=== PATIENT | female | born 1985 | race Caucasian/White ===

== ENCOUNTER 2017-11-15 15:39 | Emergency (ER) | payer BC, OTHER ==
[~2017-11-15] VITALS: Ht 170.2 cm; Wt 75.4 kg
[~2017-11-15 15:39] MED LIST: ACET-1256 PO; PRENTAB26 PO
[2017-11-15 15:54] VITALS: TEMP 36.6; Ht 170.2 cm; Wt 75.4 kg
--- NOTE | 2017-11-15 16:35 | EMERGENCY ROOM VISIT NOTE ---
ED Visit Note First contact with patient: 16:09 CHIEF COMPLAINT: Left calf pain HISTORY OF PRESENT ILLNESS: This 32-year-old female patient presents to the emergency department, ambulatory, with her , complaining of left calf pain times approximately 2 weeks. The patient states she is a history of very sensitive calves, and frequently gets pain. She states 2 weeks ago, she was doing yard work, noticed the pain beginning at that time. She states today, the pain got significantly worse, and has been progressively getting worse over the past 2 weeks. She describes the pain today as tingling and sharp stabbing pains in the left leg radiating upwards. She did start using the NuvaRing in September, and was on this for 2 months. She does have a family history of DVT in her mother due to control, and her grandfather at a young age due to an MD. The patient is very concerned due to this family history. She is no longer taking control, does not use any other hormonal supplements. She is not a smoker, denies any recent travel. The patient does have a history of anxiety, and states her anxiety has been flaring up more than normal. She denies any dyspnea or chest pain. She describes the pain in the mid calf, and states increases with palpation. She rates at 6/10. She denies any numbness, known injury, color changes. The patient is able to bear weight. REVIEW OF SYSTEMS: A 10 system review of systems was performed with positives and pertinent negatives listed in the history of present illness. All other systems were reviewed and are negative. ALLERGIES: Banana, minocycline MEDICATIONS: Vitamin D PMH: Anxiety, miscarriage SOCIAL HISTORY: Patient lives locally with family. She denies drug, tobacco use. She admits to very occasional alcohol use. PHYSICAL EXAM: VITALS: Vitals are noted on the nurse's note and reviewed by myself. Vital signs stable. The patient is not tachycardic or hypoxic. GENERAL: This is a 32-year-old white female, in no acute distress, nondiaphoretic, well-developed well-nourished. SKIN: The skin was without rashes, erythema, edema, or bruising. There is no tenting of the skin. Capillary reflex less than 2 seconds. HEAD: Normocephalic atraumatic. EARS: External auditory canals clear, tympanic membranes pearly diallo without erythema or effusion bilaterally. EYES: Pupils equal round and reactive to light and accommodation. Conjunctivae without injection, sclerae without icterus. Extraocular movements intact. NOSE: Patent, turbinates without inflammation or discharge. No sinus tenderness. MOUTH: Mucous membranes moist. Tonsils are not enlarged. Pharynx without erythema or exudate. Uvula midline. Airway patent. Tongue does not deviate. NECK: Supple without nuchal rigidity. No lymphadenopathy. No thyromegaly. Cervical spine is nontender. No JVD. HEART: Regular rate and rhythm without murmurs gallops or rubs. LUNGS: Clear to auscultation bilaterally without wheezes, rales or rhonchi. No dullness to percussion. No retractions or accessory muscle use. ABDOMEN: Positive bowel sounds x 4. Normal tympanic percussion. Soft, nontender, without masses or organomegaly. Mills sign negative. No guarding or rebound tenderness. MUSCULOSKELETAL: No muscle atrophy, erythema, or edema noted. Full range of motion without joint tenderness in all extremities. Tenderness of the anterior left tibia at approximately midline on palpation. There is tenderness of the calf. There is no palpable cord. There is no discoloration or significant swelling. The patient does have tenderness of the right calf on palpation as well. Normal gait. Strength 5/5 throughout. NEURO: Patient was alert and oriented to person place and time. Normal sensation to light and sharp touch. Deep tendon reflexes 2+ throughout. No focal neurological deficits. RADIOLOGY: L TIBIA/FIBULA 2 VIEWS ROUTINE HISTORY: 32 years-old Female left fish pain acute left leg pain COMPARISON: None available TECHNIQUE: 2 views of the left tibia and fibula FINDINGS: Subcentimeter bone island of the lateral proximal tibia. No acute fracture, subluxation or significant degenerative changes. Bone mineralization is within normal limits. Soft tissues are unremarkable without opaque foreign body. IMPRESSION: No acute bony abnormality. The above report was generated using voice recognition software. It may contain grammatical, syntax or spelling errors. Electronically signed by: Giacomo Cordero M.D. 11/15/2017 5:10 PM Dictated Date/Time: 11/15/2017 5:09 PM ULTRASOUND LEFT LOWER EXTREMITY VENOUS CLINICAL HISTORY: Left calf pain. COMPARISON STUDY: No priors. TECHNIQUE: Real-time, grayscale, and color Doppler sonography of the deep veins of the left lower extremity was performed from the inguinal crease to the calf. Compression and augmentation were utilized. FINDINGS: There is no sonographic evidence of deep venous thrombosis identified in the left lower extremity. The common femoral, superficial femoral, and popliteal veins are patent and normally compressible. The greater saphenous vein and the profunda femoris vein at the junction with the common femoral vein are clear. The visualized calf veins are patent. IMPRESSION: There is no sonographic evidence of deep venous thrombosis identified in the left lower extremity. Electronically signed by: Yony Hawthorne M.D. 11/15/2017 5:22 PM Dictated Date/Time: 11/15/2017 5:21 PM EMERGENCY DEPARTMENT COURSE: Patient was seen and evaluated as above. The primary concern was DVT, however the patient does suspect possible injury several weeks ago. X-ray and ultrasound were performed and reviewed by myself and radiologist as above. These were negative for acute injury or DVT. The patient was offered pain medication and declined. I discussed the findings of imaging with the patient at bedside. With negative tests, I suspect a possible contusion versus muscle strain or sprain. The patient was encouraged to treat the symptoms conservatively with OTC anti-inflammatories and analgesics. She was encouraged to use heat or ice, whichever helps with the discomfort. The patient was agreeable to the plan of care. She was encouraged to follow-up outpatient with her primary care provider. Discharge instructions reviewed, the patient was discharged home in good condition. I attest that I have personally reviewed the patient's current medication list. Blood Pressure Screening: Patient was found to have a slightly elevated blood pressure due to circumstances. I do not believe that the patient requires hypertension monitoring. Etiologies such as DVT, joint effusion, infection, trauma, muscular, lymphedema , idiopathic, CHF, as well as others were entertained. DIAGNOSIS: left calf pain The chart was completed utilizing [employer] Speech voice recognition software. Grammatical errors, random word insertions, pronoun errors, and incomplete sentences are an occasional consequence of this system due to software limitations, ambient noise, and hardware issues. Any formal questions or concerns about the content, text, or information contained within the body of this dictation should be directly addressed to the provider for clarification. Current/Historical Medications Scheduled Cholecalciferol (D-5000), 5,000 UNITS PO Q2D Allergies Coded Allergies: Minocycline (Verified Allergy, Intermediate, "hives on my neck", 11/15/17) Banana (Verified Allergy, Unknown, hives, gi upset, 11/15/17) Vital Signs Date Time Temp Pulse Resp B/P (MAP) Pulse Ox O2 Delivery O2 Flow Rate FiO2 11/15/17 17:48 76 123/86 100 11/15/17 15:54 36.6 97 16 157/98 96 Room Air Departure Information Impression Primary Impression: Pain of left calf Dispostion Home / Self-Care Condition GOOD Referrals No Doctor, Assigned (PCP) Patient Instructions ED Contusion Lower Ext, My [facility] Additional Instructions He was seen in the emergency department today for left calf pain. X-ray and ultrasound were negative for acute abnormalities. Ibuprofen(Motrin, Advil) may be used for fever or pain. Use 600mg every six hours as needed. Take with food. Avoid using more than 2400mg in a 24 hour period. Do not use 2400mg per day for more than three consecutive days without physician direction. Prolonged inappropriate use can lead to stomach upset or ulcers. (AND/OR) Acetaminophen(Tylenol) may be used for fever or pain. Use 1000mg every six hours as needed. Avoid using more than 3000mg in a 24 hour period. Use ice or heat to help with the discomfort. You may consider massage to help with discomfort. Please continue to follow-up with her primary care provider regarding possible causes for your pain. Return to the emergency department for any significantly worsening pain, discoloration, weakness, numbness, or other concerning symptoms.
[2017-11-15] MEDS ORDERED: CHOLTAB11 PO (16:39)
--- NOTE | 2017-11-15 17:11 | DIAGNOSTIC IMAGING REPORT ---
L TIBIA/FIBULA 2 VIEWS ROUTINE HISTORY: 32 years-old Female left fish pain acute left leg pain COMPARISON: None available TECHNIQUE: 2 views of the left tibia and fibula FINDINGS: Subcentimeter bone island of the lateral proximal tibia. No acute fracture, subluxation or significant degenerative changes. Bone mineralization is within normal limits. Soft tissues are unremarkable without opaque foreign body. IMPRESSION: No acute bony abnormality. The above report was generated using voice recognition software. It may contain grammatical, syntax or spelling errors. Electronically signed by: Giacomo Cordero M.D. 11/15/2017 5:10 PM Dictated Date/Time: 11/15/2017 5:09 PM
--- NOTE | 2017-11-15 17:23 | DIAGNOSTIC IMAGING REPORT ---
ULTRASOUND LEFT LOWER EXTREMITY VENOUS CLINICAL HISTORY: Left calf pain. COMPARISON STUDY: No priors. TECHNIQUE: Real-time, grayscale, and color Doppler sonography of the deep veins of the left lower extremity was performed from the inguinal crease to the calf. Compression and augmentation were utilized. FINDINGS: There is no sonographic evidence of deep venous thrombosis identified in the left lower extremity. The common femoral, superficial femoral, and popliteal veins are patent and normally compressible. The greater saphenous vein and the profunda femoris vein at the junction with the common femoral vein are clear. The visualized calf veins are patent. IMPRESSION: There is no sonographic evidence of deep venous thrombosis identified in the left lower extremity. Electronically signed by: Yony Hawthorne M.D. 11/15/2017 5:22 PM Dictated Date/Time: 11/15/2017 5:21 PM
[2017-11-15 17:48] VITALS: BP 123/86; PULSE 76; O2SAT 100
== END 2017-11-15 17:50 | disposition home or self-care (01) ==
LOC: C.EDB 15:40 → C.EDD 17:50
DX: M79.662 Pain in left lower leg (principal); F41.9 Anxiety disorder, unspecified; Z88.1 Allergy status to other antibiotic agents; Z91.018 Allergy to other foods; Z82.49 Family history of ischemic heart disease and other diseases of the circulatory system

== ENCOUNTER 2020-02-14 06:10 | Inpatient (IN) ==
[2020-02-14] MEDS ORDERED: OXYTOCIN 30 UNITS/500 ML BAG IV PRN ×2 (06:35→18:43)
--- NOTE | 2020-02-14 06:44 | History & Physical Report ---
Date of Service February 14, 2020 Assessment & Plan (1) Prolonged , antepartum: IUP at 40+ weeks in labor would like to ambulate for now epidural when patient requests it anticipate vaginal History of Present Illness Primary Care Provider: NO PCP Patient is a 34 yo white female EDC 02/11/20 who presents at 40+ weeks with regular contractions. no bloodys show or SPROM. uncomplicated except for post term . GBS -negative. Blood type A-negative. Allergies Allergy/AdvReac Type Severity Reaction Status Date / Time minocycline Allergy Intermediate "hives on Verified 02/13/20 15:35 my neck" banana Allergy Unknown hives, gi Verified 02/13/20 15:35 upset latex Allergy rash Verified 02/13/20 15:35 Home Medications Home Medications Medication Instructions Recorded Confirmed Type vit-iron fum-folic ac 1 tab PO DAILY 02/14/20 02/14/20 History [ Vitamin] Patient History Medical History (Updated 02/13/20 @ 15:37 by José Luis Washington Jr, MD, FACOG) Anxiety Encounter for anatomic survey H/O miscarriage, currently H/O: 1 miscarriage Hx of abnormal cells from cervix 2008 Hx of varicella Shingles Spontaneous (Inactive) Surgical History (Updated 07/23/19 @ 15:14 by Geraldine Shah) H/O dilation and curettage History of colposcopy History of tonsillectomy Family History (Updated 07/23/19 @ 15:15 by Geraldine Shah) Mother Depression Grandfather (Maternal) Myocardial infarction Social History (Updated 07/23/19 @ 15:17 by Geraldine Shah) Preferred Language: Khmer Communication Ability: Effective Latin Dance Instructor Required: No Beliefs That Will Affect Care: None marital status: marital status details: Evans Raygoza (34) [phone] Current Living Situation: Spouse Current Living Situation Comment: lives with spouse, 3 cats, 1 dog, changing litter current occupational status: employed current occupation: [employer] Other Information That Helps Us Care for You: No Feels Safe at Home: Yes Safety Concerns: Feels Safe At This Time Smoking Status: Never smoker Second Hand Exposure: No ; Hx Alcohol Use: No Hx Substance Use: No Review of Systems All systems reviewed & are unremarkable except as noted in HPI & below Physical Exam Constitutional: WD/WN, vitals as above Respiratory: normal respiratory effort, lungs clear to auscultation Cardiovascular: RRR, no murmur, no edema Gastrointestinal (Abdomen): normal bowel sounds, soft, nontender, no hepatosplenomegaly Psychiatric: A+Ox3, euthymic affect Genitourinary: OB Exam Abdomen: + vertex and + estimated weight (8-9 pounds) Manual OB Exam: + cervical dilation 5 cm, + cervical effacement 90% and + station -1 OB Exam Monitor Tracing: + external FHT monitor used, + external uterine monitor used, + category I and + normal FHT variability Results & Data Vital Signs (Past 12 Hours) Vital Signs Pulse BP 02/14/20 06:25 103 H 135/82 Coding Level of Care Code None Diagnoses Prolonged , antepartum O48.1
[2020-02-14] MEDS: LACTATED RINGER'S 1,000 ML IV PRN ×2 (07:00→12:21)
[2020-02-14 07:24] LABS: Hematocrit (blood only) 35.6 % (37-47); Hemoglobin 11.5 g/dL (12.0-16.0); Mean Corpuscular Volume 89.7 fL (80-100); Mean Platelet Volume 10.1 fL (7.4-10.4); Platelet Count 257 K/uL (130-400); RDW Coefficient of Variation 14.2 % (11.5-14.5); RDW Standard Deviation 46.5 fL (36.4-46.3); Red Blood Count 3.97 M/uL (4.2-5.4); White Blood Count 17.59 K/uL (4.8-10.8)
--- NOTE | 2020-02-14 07:33 | Anesthesiology Consultation ---
Date of Service February 14, 2020 Assessment & Plan Chart Review Chart Review: Acceptable Risk for Surgery, Patient NOT seen in Pre Admission Testing and Acceptable Risk for Labor Epidural Consults Requested none ASA ASA2 Proposed Anesthesia Anesthesia Type: Labor Epidural and CSE History Height/Weight Height: 5 ft 7 in Weight: 87.997 kg Allergies Allergy/AdvReac Type Severity Reaction Status Date / Time minocycline Allergy Intermediate "hives on Verified 02/13/20 15:35 my neck" banana Allergy Unknown hives, gi Verified 02/13/20 15:35 upset latex Allergy rash Verified 02/13/20 15:35 Medications Home Medications Medication Instructions Recorded Confirmed Last Taken vit-iron fum-folic ac 1 tab PO DAILY 02/14/20 02/14/20 02/12/20 [ Vitamin] Active Medications Generic Name Dose Route Start Last Admin Trade Name Freq PRN Reason Stop Dose Admin Lactated Ringer's 1,000 mls @ 125 mls/hr 02/14/20 06:35 02/14/20 07:31 Lr IV 02/16/20 06:34 125 mls/hr .Q8H PRN Infusion L&D Protocol Protocol Past Medical History Medical History Anxiety Encounter for anatomic survey H/O miscarriage, currently H/O: 1 miscarriage Hx of abnormal cells from cervix 2008 Hx of varicella Shingles Spontaneous (Inactive) Exercise / Class Metabolic Activity II 4-5 Yardwork/Stairs/Walk up hill Past Family History Family History Mother Depression Grandfather (Maternal) Myocardial infarction Past Surgical History Surgical History H/O dilation and curettage History of colposcopy History of tonsillectomy Past Anesthesia History No Hx of Anesthesia Complications and No Family Hx of Anesthesia Complications History of PONV No Hx of PONV and No Hx of Motion Sickness Social History Smoking Status: Never smoker Hx Alcohol Use: No Hx Substance Use: No Physical Exam Vital Signs Last Vital Signs Temp 36.5 C 02/14/20 06:27 Pulse 93 H 02/14/20 07:04 Resp 20 02/14/20 07:04 BP 130/96 02/14/20 07:04 Testing Laboratory Results 02/14/20 06:55
[2020-02-14 07:39] LABS: Mean Corpuscular Hgb Conc 32.3 g/dL (32-36)
[2020-02-14] MEDS ORDERED: BUPIVACAINE 0.25% 30 ML VIAL ONE (11:47)
[2020-02-14] MEDS ORDERED: fentaNYL citrate 100 MCG/2 ML VIAL ONE (11:47)
[2020-02-14] MEDS ORDERED: ePHEDrine sulfate 50 MG/ML AMP ONE (11:47)
[2020-02-14] MEDS ORDERED: fentaNYL 2MCG/ML ROPIV 1.25MG/ML 100 ML BAG EPI ONE (11:48)
[2020-02-14] MEDS ORDERED: NALOXONE HCL 0.4 MG/1 ML VIAL/CARP IV PRN (12:36)
[2020-02-14] MEDS ORDERED: ePHEDrine sulfate 50 MG/ML AMP IV PRN (12:36)
[2020-02-14] MEDS ORDERED: NALOXONE HCL 1 MG in SODIUM CHLORIDE 0.9% 1000ML 1,000 ML IV PRN (12:36)
[2020-02-14] MEDS ORDERED: ONDANSETRON INJ 2 MG/ML 2 ML VIAL IV PRN (12:36)
[2020-02-14] MEDS ORDERED: NALBUPHINE HCL INJ 10 MG/ML AMP IV PRN (12:36)
[2020-02-14] MEDS ORDERED: DiphenhydrAMINE HCL 50 MG/ML VIAL IV PRN (12:36)
[2020-02-14] MEDS ORDERED: PROMETHAZINE HCL 25 MG in SODIUM CHLORIDE 0.9% 50 ML IV PRN (12:36)
[2020-02-14] MEDS ORDERED: fentaNYL 2MCG/ML ROPIV 1.25MG/ML 100 ML BAG EPI PRN (12:36)
--- NOTE | 2020-02-14 17:10 | Labor Progress Brief Note ---
Date of Service February 14, 2020 Pushing for 100 minutes. Good descent of the head. Cat 2 Results & Data Vital Signs (Past 12 Hours) Vital Signs Temp Pulse Resp BP Pulse Ox 02/14/20 17:07 104 H 97 02/14/20 17:02 105 H 133/69 97 02/14/20 16:57 118 H 97 02/14/20 16:52 109 H 97 02/14/20 16:47 118 H 98 02/14/20 16:46 108 H 131/67 02/14/20 16:42 110 H 98 02/14/20 16:37 110 H 98 02/14/20 16:33 110 H 137/72 02/14/20 16:32 112 H 98 02/14/20 16:27 119 H 98 02/14/20 16:22 105 H 97 02/14/20 16:20 110 H 92 02/14/20 16:17 115 H 148/75 H 97 02/14/20 16:12 103 H 97 02/14/20 16:07 114 H 99 02/14/20 16:05 114 H 91 02/14/20 16:02 121 H 96 02/14/20 16:01 99 H 140/73 02/14/20 15:58 107 H 92 02/14/20 15:57 106 H 98 02/14/20 15:52 105 H 98 02/14/20 15:48 107 H 84 L 02/14/20 15:47 102 H 137/73 96 02/14/20 15:42 100 H 100 02/14/20 15:41 98.2 F 20 02/14/20 15:37 90 99 02/14/20 15:32 84 99 02/14/20 15:31 88 130/70 02/14/20 15:27 85 98 02/14/20 15:22 82 98 02/14/20 15:17 94 H 99 02/14/20 15:13 83 132/79 02/14/20 15:12 86 98 02/14/20 15:08 83 134/78 02/14/20 15:07 84 97 02/14/20 15:02 84 122/73 97 02/14/20 14:58 85 122/73 02/14/20 14:57 87 97 02/14/20 14:53 82 127/74 02/14/20 14:52 80 97 02/14/20 14:48 85 122/73 02/14/20 14:47 79 98 02/14/20 14:43 80 119/72 02/14/20 14:42 81 98 02/14/20 14:37 77 120/75 97 02/14/20 14:33 75 120/71 02/14/20 14:32 75 98 02/14/20 14:28 77 116/67 02/14/20 14:27 77 97 02/14/20 14:23 82 120/68 02/14/20 14:22 81 98 02/14/20 14:18 75 119/69 02/14/20 14:17 80 97 02/14/20 14:13 81 131/82 02/14/20 14:12 84 98 02/14/20 14:07 84 123/72 98 02/14/20 14:02 86 129/75 97 02/14/20 13:59 85 129/78 02/14/20 13:57 85 97 02/14/20 13:53 81 121/72 02/14/20 13:52 82 98 02/14/20 13:48 75 105/64 02/14/20 13:47 73 98 02/14/20 13:44 78 121/65 02/14/20 13:42 85 98 02/14/20 13:37 77 119/69 98 02/14/20 13:34 81 120/63 02/14/20 13:32 84 98 02/14/20 13:28 78 118/69 02/14/20 13:27 83 98 02/14/20 13:23 87 121/70 02/14/20 13:22 96 H 98 02/14/20 13:18 98 H 120/81 02/14/20 13:17 84 98 06 13:13 95 H 118/68 02/14/20 13:12 92 H 98 02/14/20 13:07 104 H 115/73 98 06 13:03 85 119/74 02/14/20 13:02 87 99 02/14/20 12:58 80 112/61 02/14/20 12:57 85 98 02/14/20 12:52 68 112/63 99 02/14/20 12:50 16 02/14/20 12:47 78 112/61 98 02/14/20 12:45 18 02/14/20 12:44 89 110/63 02/14/20 12:42 86 98 02/14/20 12:40 18 02/14/20 12:37 88 98 02/14/20 12:36 96 H 104/60 02/14/20 12:35 18 02/14/20 12:34 92 H 111/63 02/14/20 12:32 87 111/64 99 02/14/20 12:30 80 115/70 02/14/20 12:28 85 117/72 02/14/20 12:27 87 98 02/14/20 12:26 71 114/69 02/14/20 12:24 71 113/65 02/14/20 12:22 88 126/73 98 02/14/20 12:20 94 H 131/81 02/14/20 12:18 88 130/76 02/14/20 12:17 91 H 97 02/14/20 12:16 93 H 125/77 02/14/20 12:12 88 98 02/14/20 12:07 89 98 02/14/20 12:02 86 98 02/14/20 11:59 83 128/76 02/14/20 11:57 97.5 F L 88 20 98 02/14/20 08:59 88 132/72 02/14/20 07:04 93 H 20 130/96 02/14/20 06:27 97.7 F 18 02/14/20 06:25 97.7 F 103 H 18 135/82 Coding Level of Care Code None
--- NOTE | 2020-02-14 18:13 | Delivery Summary ---
Vaginal Delivery Summary Date of Service February 14, 2020 Vaginal Delivery Summary Patient had been pushing for over 2 hours and reached a point of maternal exhaustion where she requested help I offered vacuum assistance the baby was at +2 station bladder had been drained recently patient had an epidural baby baby was in right occiput anterior position the vacuum was applied over 3 contractions and 1 pop-off the baby was then delivered the head and in the right occiput anterior position mouth and the nares suctioned fluid was clear there was no nuchal cord baby was delivered by gentle traction no excessive force used live vigorous cord clamped and cut cord gases obtained a small Vicryl. The baby the center is removed IV Pitocin started bleeding improved sponge and instrument counts correct estimated blood loss 300 mL
[2020-02-14] MEDS ORDERED: BENZOCAINE 20% AER SPR 82.5 GM CAN EXT PRN (18:43)
[2020-02-14] MEDS ORDERED: OXYCODONE/ACETAMINOPHEN 5mg/325mg TAB PO PRN (18:43)
[2020-02-14] MEDS ORDERED: bisacodyL 10 MG SUPP PR PRN (18:43)
[2020-02-14] MEDS ORDERED: DIPHTHERIA/TETANUS/PERTUSSIS 0.5 ML SYR/VIAL IM ONE (18:43)
[2020-02-14] MEDS ORDERED: HYDROCORTISONE ACETATE 25 MG SUPP PR PRN (18:43)
[2020-02-14] MEDS ORDERED: SUPERCREAM 0.870% 15 GM JAR EXT PRN (18:43)
--- NOTE | 2020-02-14 18:50 | Anesthesia Procedure Note ---
Date of Service February 14, 2020 Anesthesia Post Epidural Note Vital Signs Vital Signs: Temp Pulse Resp BP Pulse Ox 36.8 C 101 H 20 107/57 L 96 02/14/20 15:41 02/14/20 18:40 02/14/20 15:41 02/14/20 18:40 02/14/20 18:02 Notes Mental Status: alert / awake / arousable Nausea / Vomiting: adequately controlled Pain: adequately controlled Airway Patency, RR, SpO2: stable & adequate BP & HR: stable & adequate Hydration State: stable & adequate Neuraxial Anesthesia: was administered and sensory block is resolving Anesthetic Complications: no major complications apparent Epidural: Removed without complications and With tip intact
[2020-02-14 18:56] LABS: Cord Venous Blood HCO3 24 mmol/L (18.4-26.8); Cord Venous Blood PCO2 44 mmHg (30.4-57.2); Cord Venous Blood PO2 25 mmHg (14.1-43.3); Cord Venous Blood pH 7.35 (7.20-7.44)
[2020-02-14 19:20] LABS: O2 Saturation Cord Venous Bld < 60.0 % (<68)
[2020-02-14 19:22] LABS: Base Excess Cord Arterial Bld -2.1 mEq/L (-9-1.8); CO2 Cord Arterial Blood 57 mmHg (39.1-73.5); HCO3 Cord Arterial Blood 26 mmol/L (19.7-28.5); PO2 Cord Arterial Blood 18 mmHg (4.1-31.7); pH Cord Arterial Blood 7.28 (7.1-7.38)
[2020-02-14 19:23] LABS: Oxygen Sat Cord Arterial Blood < 60.0 % (<60)
[2020-02-14] MEDS: IBUPROFEN 600 MG TAB PO PRN (19:48)
[2020-02-14] MEDS: DOCUSATE SODIUM 100 MG CAP PO SCH (21:11)
[2020-02-15] MEDS: IBUPROFEN 600 MG TAB PO PRN ×3 (01:07→16:38)
[2020-02-15] MEDS: ACETAMINOPHEN 325 MG TAB PO PRN ×2 (04:05→19:14)
[2020-02-15 06:00] LABS: Hematocrit (blood only) 34.1 % (37-47); Hemoglobin 11.1 g/dL (12.0-16.0); Mean Corpuscular Hgb Conc 32.6 g/dL (32-36); Mean Platelet Volume 10.3 fL (7.4-10.4); Platelet Count 261 K/uL (130-400); RDW Coefficient of Variation 14.5 % (11.5-14.5); RDW Standard Deviation 47.3 fL (36.4-46.3); Red Blood Count 3.83 M/uL (4.2-5.4); White Blood Count 23.98 K/uL (4.8-10.8)
[2020-02-15] MEDS: PRENATAL VITAMIN 1 TAB PO SCH (08:07)
[2020-02-15] MEDS: DOCUSATE SODIUM 100 MG CAP PO SCH ×2 (08:07→20:45)
--- NOTE | 2020-02-15 08:55 | Obstetrical Progress Note ---
Date of Service February 15, 2020 Assessment & Plan (1) state: doing well PPD #1 Subjective Ambulation: ambulating normally Voiding: no voiding problems Passing Gas:: Yes Diet Tolerance:: regular diet Lochia:: Small Feeding Type:: breast feeding Current Pain Level(1-10): 2 Physical Exam ext neg, uterus firm Results & Data Vital Signs (Past 12 Hours) Vital Signs Temp Pulse Resp BP 02/15/20 04:00 97.9 F 82 18 112/73 02/15/20 01:25 98.1 F 94 H 18 137/82 02/14/20 21:35 98.1 F 105 H 20 134/77
[2020-02-15] MEDS ORDERED: NON-FORMULARY MEDICATION (Prenatal Vit-Iron Fum-Folic Ac [Prenatal Vitamin] 1 TAB) PO SCH (09:00)
[2020-02-15] MEDS ORDERED: bisacodyL 5 MG TABEC PO SCH (20:00)
[2020-02-16] MEDS: IBUPROFEN 600 MG TAB PO PRN ×3 (00:08→11:03)
--- NOTE | 2020-02-16 06:28 | Obstetrical Progress Note ---
Date of Service <Shawn Delatorre MD - Last Filed: 02/16/20 07:13> February 16, 2020 Assessment & Plan <Shawn Delatorre MD - Last Filed: 02/16/20 07:13> (1) : PPD #2: Rh negative mother/ baby Rh negative Doing well, ambulating well, tolerating oral intake Continue routine post- care After discharge will have follow-up in [address] Monique (2) Rh negative status during : Subjective <Shawn Delatorre MD - Last Filed: 02/16/20 07:13> Gi Szymanski is a 34 y/o female ; PPD #2 following spontaneous vaginal delivery at 40+ weeks; doing well this morning; no abdominal cramping/pain; voiding well; tolerating meals overnight; and able to ambulate some around room; some persistent spotting with intermittent improvement this morning. Review of Systems Constitutional: denies fever; chills; sweats; headache Respiratory: denies shortness of breath, difficulty breathing Cardiac: denies chest pain; palpitations; chest pressure Breast: denies breast pain : denies dysuria Physical Exam <Shawn Delatorre MD - Last Filed: 02/16/20 07:13> General: alert; oriented; no acute distress Cardiac: RRR; no m/g/r Respiratory: CTAB a/p; no wheezes/rales/rhonchi; no increased work of breathing; symmetrical chest rise; no respiratory distress Abdomen: soft; NT/ND; bowel sounds positive Uterus: uterine fundus firm; palpable 2cm below umbilicus Lower extrem: no lower extremity edema or swelling; no deep calf pain; Troung's sign negative b/l Results & Data <Shawn Delatorre MD - Last Filed: 02/16/20 07:13> Vital Signs (Past 12 Hours) Vital Signs Temp Pulse Resp BP Pulse Ox 02/15/20 23:35 36.6 C 85 16 113/71 97 02/15/20 19:45 36.6 C 80 17 119/74 98 Medications Administered Current Inpatient Medications Acetaminophen (Tylenol) 650 mg PO Q6H PRN PRN Reason: Pain/HERNANDEZ/Fever Stop: 03/15/20 18:42 Last Admin: 02/15/20 19:14 Dose: 650 mg Documented by: Benzocaine (Dermoplast Pain Relieving [place]) 1 appln EXT PRN PRN PRN Reason: Perineal Discomfort Stop: 03/15/20 18:42 Bisacodyl (Dulcolax) 10 mg AR DAILY PRN PRN Reason: No BM on 2nd post- day Stop: 03/15/20 18:42 Cocaine HCl (Supercream 0.870%) 1 gm EXT BID PRN PRN Reason: Hemorrhoidal Inflammation Stop: 02/28/20 18:42 Docusate Sodium (Colace) 100 mg PO DAILY@08,21 [facility] Stop: 03/15/20 20:59 Last Admin: 02/15/20 20:45 Dose: 100 mg Documented by: Hydrocortisone (Anusol Hc) 25 mg AR BID PRN PRN Reason: Hemorrhoidal Inflammation Stop: 03/15/20 18:42 Oxytocin (Pitocin) 30 units in 500 mls @ 333.333 mls/hr IV .Q1H30M PRN; Protocol PRN Reason: Bleeding Control Stop: 03/15/20 18:42 Ibuprofen (Motrin) 600 mg PO Q4H PRN PRN Reason: Pain/HERNANDEZ/Cramping/Fever Stop: 03/15/20 18:42 Last Admin: 02/16/20 00:08 Dose: 600 mg Documented by: Oxycodone/Acetaminophen (Percocet 5mg/325mg) 1 tab PO Q4H PRN PRN Reason: Pain not relieved by... Stop: 02/28/20 18:42 Prenat Multivit/Director Occupational/Iron/Folic Ac ( Vitamin) 1 tab PO DAILY@08 [facility] Stop: 03/16/20 07:59 Last Admin: 02/15/20 08:07 Dose: 1 tab Documented by: <Kelvin Monique MD, FACOG - Last Filed: 02/16/20 07:20> Co-Signing Physician Notes Resident Physician Supervision Note: I interviewed and examined the patient. Discussed with [Name of resident] and agree with findings and plan as documented in the note. Any exceptions or clarifications are listed here: [None] Documented By: Kelvin Monique MD, FACOG Resident Activity Tracking <Shawn Delatorre MD - Last Filed: 02/16/20 07:13> Resident Involvement: Resident Care Provided Care Provided: OB Delivery
[2020-02-16 07:33] LABS: Hematocrit (blood only) 32.6 % (37-47); Hemoglobin 10.6 g/dL (12.0-16.0)
[2020-02-16] MEDS: PRENATAL VITAMIN 1 TAB PO SCH (07:54)
[2020-02-16] MEDS: DOCUSATE SODIUM 100 MG CAP PO SCH (07:54)
--- NOTE | 2020-02-18 16:47 | Discharge Summary ---
Date of Service February 18, 2020 Admission HPI Per Admitting Provider Patient is a 34 yo white female EDC 02/11/20 who presents at 40+ weeks with regular contractions. no bloodys show or SPROM. uncomplicated except for post term . GBS -negative. Blood type A-negative. Admission Exam (Per Admitting) Constitutional WD/WN, vitals as above Cardiovascular RRR, no murmur, no edema Gastrointestinal (Abdomen) normal bowel sounds, soft, nontender, no hepatosplenomegaly Discharge Data Consultations 02/14/20 06:35 Consult Anesthesiology Stat Hospital Course (1) state: Patient had a vacuum delivery for maternal exhaustion the second stage and delivered a vigorous infant that was healthy her course in hospital was unremarkable by day 2 she was ambulating well tolerating an oral diet had no extremity pain minimal bleeding and minimal discomfort at that time she met discharge criteria these were reviewed with her and she will follow-up in the office in 6 weeks call sooner with any problems Coding Level of Care Code None Diagnoses state Z39.2
== END 2020-02-16 14:35 | disposition home or self-care (01) | DRG 807 ==
LOC: OPB 06:10 → 4S1 06:18 → 4S2 21:19